=== PATIENT | female | born 1930 | race Caucasian/White ===

== ENCOUNTER → 2016-06-08 | Outpatient (REF) | payer MEDICARE ==
[~2016-06-08] MED LIST: /AMLO25TA PO; AMLO5TAB2 PO; ARTI99.0 OU; ASPI81TA60 PO; AUGM12TA3 PO; BACITAB PO; CARA1SUS PO; CHOL4PKT PO; CLOP75TA2 PO; CRES40TA PO; FURO40TA2 PO; LIPI20TA PO; METF-414 PO; MICR8CAP PO; MULTTAB4 PO; NADO20TA2 PO; NEUR300C PO; OMEP20CA3 PO; SILV1CRE19 TOP; TOPR25TA PO; TYLE325T5 PO; VANC12CA PO; VICOBULK PO; VITA-112 PO; ZEST10TA4 PO; [UNRECOGNIZED DRUG - CODE] AD
[2016-06-08 19:25] LABS: PERCENT SATURATION 10.6 % (13.2-37.4)
== END ==
LOC: M LAB REF 16:18
DX: G62.9 Polyneuropathy, unspecified (principal); D64.9 Anemia, unspecified

== ENCOUNTER → 2016-11-25 | Outpatient (CLI) | payer MEDICARE ==
[~2016-11-25] MED LIST changes: +AMLO25TA PO; +ASPI1TAB PO; +ATOR40TA75 PO; +IRON65TA PO; +LASI20TA PO; +LEVA1TAB PO; +METO25TA4 PO; +VITMTA PO
[2016-11-25 12:48] LABS: ALBUMIN 3.5 GM/DL (3.2-5.2); ALBUMIN/GLOBULIN RATIO 1.13 (1.00-1.93); ALKALINE PHOSPHATASE 99 U/L (45-117); ALT/SGPT 23 U/L (12-78); ANION GAP 6 MEQ/L (8-16); AST/SGOT 29 U/L (15-37); BILIRUBIN,TOTAL 0.9 MG/DL (0.2-1.0); BLOOD UREA NITROGEN 20 MG/DL (7-18); CALCIUM LEVEL 9.2 MG/DL (8.8-10.2); CARBON DIOXIDE LEVEL 32 MEQ/L (21-32); CHLORIDE LEVEL 104 MEQ/L (98-107); CHOLESTEROL LEVEL 143 MG/DL (<200); CREATININE FOR GFR 0.81 MG/DL (0.55-1.02); GLOMERULAR FILTRATION RATE > 60.0 (>32); GLUCOSE, FASTING 79 MG/DL (83-110); POTASSIUM SERUM 4.6 MEQ/L (3.5-5.1); SODIUM LEVEL 142 MEQ/L (136-145); TOTAL PROTEIN 6.6 GM/DL (6.4-8.2); TRIGLYCERIDES LEVEL 72 MG/DL (<150)
[2016-11-25 13:07] LABS: BASO % 0.7 % (0.0-1.0); EOS # 0.2 K/mm3 (0.0-0.50); EOS % 3.7 % (0.0-3.0); LARGE UNSTAINED CELL # 0.1 K/mm3 (0.0-0.4); LARGE UNSTAINED CELL % 2.5 % (0.0-4.0); LYMPH # 1.2 K/mm3 (1.5-4.5); MEAN CORPUSCULAR HEMOGLOBIN 31.8 pg (27.0-33.0); MEAN CORPUSCULAR HGB CONC 33.2 g/dl (32.0-36.5); MEAN CORPUSCULAR VOLUME 95.9 fl (80.0-96.0); MONO # 0.4 K/mm3 (0.0-0.8); MONO % 7.5 % (0.0-5.0); NEUTROPHILS # 3.7 K/mm3 (1.8-7.7); NEUTROPHILS % 64.6 % (36.0-66.0); PLATELET COUNT, AUTOMATED 254 k/mm3 (150-450); RED CELL DISTRIBUTION WIDTH 13.2 % (11.5-14.5); WHITE BLOOD COUNT 5.7 K/mm3 (4.0-10.0)
== END ==
LOC: M LRY 09:39
PROVIDERS: ATTEND Internal Medicine
DX: I73.9 Peripheral vascular disease, unspecified (principal)

== ENCOUNTER → 2017-02-16 | Outpatient (CLI) | payer MEDICARE ==
[2017-02-16 12:36] LABS: BLOOD UREA NITROGEN 24 MG/DL (7-18); CREATININE FOR GFR 0.74 MG/DL (0.55-1.02); GLOMERULAR FILTRATION RATE > 60.0 (>32)
== END ==
LOC: M LRY 09:18
PROVIDERS: ATTEND Surgery
DX: Z85.048 Personal history of other malignant neoplasm of rectum, rectosigmoid junction, and anus (principal); E11.9 Type 2 diabetes mellitus without complications

== ENCOUNTER → 2017-02-24 | Outpatient (CLI) | payer MEDICARE ==
[~2017-02-24] MED LIST changes: +GASTROGRAFIN SOLUTION 30ML (Q9963) As Ordered ONE; +ISOVUE-370 76% 100ML VIAL (Q9967) As Ordered ONE
--- NOTE | 2017-02-24 14:29 | REP ---
CT of the abdomen and pelvis with bowel can contrast and without and with IV contrast, multiphase imaging. Comparison is 02/10/2016. Within the visualized lower lung barker. There is chronic parenchymal scarring as previously. No nodules or masses are identified. The hepatic parenchyma is homogeneous on all phases of the study. The gallbladder, pancreas and spleen are normal size and unremarkable. There is a new 5.6 cm cyst at the lower pole of the right kidney. This measured 5 x 4 cm previously. The kidneys are otherwise unremarkable and unchanged. There is no bowel distension. Mesentery is unremarkable. Pelvis: There is a left lower quadrant colostomy as previously. There is a rectal stump as previously. On the prior study there was a parastomal hernia comprising small bowel loops. This is no longer present today. There is no bowel distension or obstruction. No ascites. There is no periaortic or mesenteric adenopathy. There is no pelvic adenopathy. There is no ascites. The bladder is unremarkable. There are no lytic, blastic or destructive skeletal changes. There is advanced degenerative disc disease throughout the lumbar spine and there is grade II compression deformity of the T12 vertebral body. These findings are unchanged. Impression: No change from the prior study. No evidence of metastatic disease, adenopathy or disc ascites. There is a left lower quadrant colostomy. A rectal stump. No bowel distension or obstruction. There is a large right renal lower pole cysts as described. Advanced multilevel degenerative disc disease in the lumbar spine and chronic grade II compression deformity of the T12 vertebral body, unchanged. Signed by Db Forte MD 02/24/2017 02:20 P
== END ==
LOC: M RAD 11:16
PROVIDERS: ATTEND Surgery
DX: J98.4 Other disorders of lung (principal); N28.1 Cyst of kidney, acquired; M51.86 Other intervertebral disc disorders, lumbar region; Z85.048 Personal history of other malignant neoplasm of rectum, rectosigmoid junction, and anus; Z93.3 Colostomy status
CPT/HCPCS: 74178; Q9963; Q9967

== ENCOUNTER 2017-03-28 15:02 | Observation (INO) | payer MEDICARE ==
[~2017-03-28] VITALS: Ht 154.9 cm; Wt 54.7 kg
[~2017-03-28 15:02] MED LIST changes: -AMLO25TA PO; -ASPI1TAB PO; -ATOR40TA75 PO; -GASTROGRAFIN SOLUTION 30ML (Q9963) As Ordered ONE; -IRON65TA PO; -ISOVUE-370 76% 100ML VIAL (Q9967) As Ordered ONE; -LASI20TA PO; -LEVA1TAB PO; -METO25TA4 PO; -VITMTA PO
[2017-03-28] MEDS ORDERED: IRON65TA PO (15:20)
[2017-03-28] MEDS ORDERED: ASPI1TAB PO (15:20)
[2017-03-28 16:50] LABS: BASO % 0.5 % (0.0-1.0); EOS # 0.3 10^3/uL (0.0-0.50); EOS % 3.9 % (0.0-3.0); IMMATURE GRANULOCYTE % 0.2 % (0-0); LYMPH # 1.3 10^3/uL (1.5-4.5); LYMPH % 19.8 % (24.0-44.0); MEAN CORPUSCULAR HEMOGLOBIN 31.3 pg (27.0-33.0); MEAN CORPUSCULAR HGB CONC 32.8 g/dl (32.0-36.5); MEAN CORPUSCULAR VOLUME 95.5 fl (80.0-96.0); MONO # 0.8 10^3/uL (0.0-0.8); MONO % 12.7 % (0.0-5.0); NEUTROPHILS # 4.1 10^3/uL (1.8-7.7); NEUTROPHILS % 62.9 % (36.0-66.0); PLATELET COUNT, AUTOMATED 239 10^3/uL (150-450); RED CELL DISTRIBUTION WIDTH 13.8 % (11.5-14.5); WHITE BLOOD COUNT 6.5 10^3/uL (4.0-10.0)
[2017-03-28 17:11] LABS: ALBUMIN 3.3 GM/DL (3.2-5.2); ALKALINE PHOSPHATASE 96 U/L (45-117); ALT/SGPT 24 U/L (12-78); ANION GAP 7 MEQ/L (8-16); AST/SGOT 26 U/L (7-37); BILIRUBIN,DIRECT 0.2 MG/DL (0.0-0.2); BILIRUBIN,TOTAL 0.6 MG/DL (0.2-1.0); BLOOD UREA NITROGEN 25 MG/DL (7-18); CALCIUM LEVEL 8.9 MG/DL (8.8-10.2); CARBON DIOXIDE LEVEL 33 MEQ/L (21-32); CHLORIDE LEVEL 103 MEQ/L (98-107); CREATININE FOR GFR 0.75 MG/DL (0.55-1.02); FREE T4 1.13 NG/DL (0.76-1.46); GLOMERULAR FILTRATION RATE > 60.0 (>32); GLUCOSE, FASTING 102 MG/DL (83-110); SODIUM LEVEL 143 MEQ/L (136-145); TOTAL PROTEIN 6.6 GM/DL (6.4-8.2)
[2017-03-28] MEDS ORDERED: VITMTA PO (17:52)
[2017-03-28] MEDS ORDERED: METO25TA4 PO (17:52)
[2017-03-28] MEDS ORDERED: ATOR40TA75 PO (17:52)
[2017-03-28] MEDS ORDERED: POLYVINYL ALCOHOL OPHTH SOLN 15 ML(LIQUITEARS) OU PRN (18:15)
[2017-03-28] MEDS: amLODIPine 5 MG TAB PO SCH (18:17)
[2017-03-28] MEDS ORDERED: DEXTROSE 50% 50 ML SYRINGE IV PRN (18:30)
[2017-03-28] MEDS ORDERED: GLUCAGON FOR INJ 1 MG VIAL (J1610) SC PRN (18:30)
[2017-03-28] MEDS ORDERED: GLUCOSE 4 GM CHEW TABLET PO PRN (18:30)
[2017-03-28] MEDS: **hydrALAZINE** 10 MG TAB PO SCH (20:00)
[2017-03-28 20:25] VITALS: BP 152/60
[2017-03-28] MEDS: HumaLOG INSULIN (NovoLOG) PER UNIT SC SCH (21:00)
[2017-03-28] MEDS: ATORVASTATIN 20 MG TAB PO SCH (22:02)
[2017-03-28] MEDS: GABAPENTIN 300 MG CAP PO SCH (22:03)
[2017-03-28] MEDS: HEPARIN SOD (PORCINE) 5000 UNITS/ML VIAL SC SCH (22:03)
[2017-03-28] MEDS: ACETAMINOPHEN TAB 650MG DOSE (2X325MG) PO PRN (22:08)
[2017-03-29] VITALS (8 sets, daily range): BP systolic 119–190; BP diastolic 59–80
[2017-03-29] MEDS: **hydrALAZINE** 10 MG TAB PO SCH ×3 (03:31→20:00)
--- NOTE | 2017-03-29 04:49 | HPE ---
DATE OF ADMISSION: 03/28/2017 PRIMARY CARE PROVIDER: Dr. Joel. OUTPATIENT SALES TRAINING COORDINATOR: Dr. Alcaraz. HISTORY OF PRESENT ILLNESS: This patient is an 86-year-old female with a past medical history significant for peripheral vascular disease, rectal cancer status post colectomy, degenerative disc disease, diabetes, bilateral carotid endarterectomy, osteoporosis, gastroesophageal reflux disease (GERD), Raynaud's, myocardial infarction (MA) status post four cardiac stents, presented to [facility] on 03/28/2017 for increased fatigue. Patient stated intermittently she would feel dizziness and lightheadedness and the most recent episode occurred 2 weeks ago and lasted for a few hours. In the last 24 hours, patient started to have complaint about significant fatigue and "shakiness of the body," and the niece brought the blood pressure cuff to the patient today and patient was found to have a heart rate of 39. Then the niece started to walk the patient. The heart rate improved to greater than 50s. However, the symptoms continued to persist, therefore, they came to [facility] for further evaluation and treatment. In the emergency room, EKG was performed. There are multiple incidences that patient's heart rate would drop below 50s. [employer] sales service professional was reached and recommended to monitor on telemetry and beta norma should be discontinued at the moment. The hospitalist team was called for admission. PAST MEDICAL HISTORY: 1. Peripheral vascular disease with revascularization of the left lower extremity. 2. Degenerative disc disease. 3. Rectal cancer status post colectomy 3 years ago. 4. Diabetes with neuropathy and vasculopathy. 5. Bilateral carotid blockage status post endarterectomies. 6. Osteoporosis. 7. Gastroesophageal reflux disease. 8. Raynaud's. 9. Postoperative MA with ventricular fibrillation (VFib) and cardiac arrest status post bare metal stent. PAST SURGICAL HISTORY: 1. Left lower extremity revascularization with femoral popliteal bypass graft. 2. Colectomy 3 years ago. 3. Bilateral carotid endarterectomies. 4. Hysterectomy. 5. Appendectomy. 6. Rectal fistula surgery. 7. Cardiac stent times four. SOCIAL HISTORY: Quit smoking 40 years ago, used to smoke one pack per week for 15 years. Drinks tiarra approximately twice a year. Denied any recreational drug use. REVIEW OF SYSTEMS: GENERAL: Denies any fever or chills. Complained about increased fatigue. HEENT: Denies any vision changes. No auditory changes. CARDIOVASCULAR: History of MA and cardiac arrest in the past. Patient has been having persistent bradycardia. Denied any chest pain. RESPIRATORY: No shortness of breath. No cough. No sputum production. GASTROINTESTINAL: Patient had a history of rectal cancer. Now has an ostomy. No abdominal pain. No nausea. No vomiting. MUSCULOSKELETAL: No muscle pain. No joint pain. NEUROLOGICAL: Patient has diabetic neuropathy and vasculopathy. Has decreased sensation in the extremities, especially the fingertips. OBJECTIVE: VITAL SIGNS: Temperature 98, pulse 50, blood pressure 158/60 with a manual cuff. Pulse oximetry is 95% in room air. GENERAL: Fatigued, pale, no sign of acute distress. Alert and oriented times three. HEENT: Normocephalic, atraumatic. Extraocular motor grossly intact. Wearing corrective lenses. RESPIRATORY: Clear to auscultation bilaterally. No wheezes, rhonchi. CARDIOVASCULAR: Bradycardic, positive S1, S2. ABDOMEN: Soft, nontender, nondistended, bowel sounds present, bag located left mid lower abdomen. EXTREMITIES: Positive pitting edema bilaterally. Dry lower extremity skin. Mild coldness to the bilateral fingers. NEUROLOGICAL: Decreased sensation peripherally. The sensation to fine touch grossly intact. Muscle strength 5/5. LABORATORY DATA: WBC 6.5, hemoglobin 13.1, hematocrit 39.9, platelet count is 239. Sodium is 143, potassium 4, chloride 103, carbon dioxide 33, BUN 25, creatinine 0.75, GFR greater than 60, fasting glucose 102, calcium 8.9, total bilirubin 0.6, direct bilirubin 0.2, AST 26, ALT 24, alkaline phosphatase 96, troponin I is 0.03, total protein 6.6. EKG showed sinus bradycardia. ASSESSMENT AND PLAN: 1. Symptomatic bradycardia. Patient was taking metoprolol tartrate 25 mg by mouth twice a day. Due to the symptomatic bradycardia, metoprolol will be on hold. Patient will be monitored on the telemetry. 2. Hypertensive urgency. There are [facility] stating patient has a significantly elevated blood pressure. Most of the blood pressures were taken with automatic cuff. There is also reading when patient's blood pressure is measured manually, the blood pressure still remains elevated, but systolic blood pressure is not greater than 200. Therefore, all the patient's blood pressure measurements should be measured with a manual cuff. Due to the symptomatic bradycardia, metoprolol will be discontinued. There is a questionable adverse effect in lisinopril; patient complained about dizziness when taking lisinopril, but she is not 100% sure. Patient's blood pressure medication was switched to amlodipine. Patient will also have hydralazine as needed for persistent hypertensive urgency. We will also continue patient's diuretic. 3. Diabetes. On consistent carbohydrate diet, on sliding scale. Will follow A1c tomorrow morning. Patient does have neuropathy and vasculopathy from the diabetes. At home, patient is not insulin dependent. 4. History of rectal cancer status post colectomy. Patient has an ostomy in place. 5. History of postoperative myocardial infarction (MA) with ventricular fibrillation (VFib) and cardiac arrest. It occurred approximately 3 years ago when patient was receiving colectomy for her rectal cancer. Patient also has four cardiac stents. Continue aspirin and atorvastatin. 6. History of Raynaud's. 7. Gastroesophageal reflux disease. Patient will be on Protonix. 8. Diuretic use. Patient was not sure whether she has a history of congestive heart failure. She did have a history of cardiac arrest and myocardial infarction 3 years ago. Patient also has frequent lower extremity swelling. Will follow with cardiac echogram. No echocardiogram report available in our computer system. 9. History of peripheral vascular disease with revascularization of the left lower extremity. On aspirin. 10. Deep venous thrombosis (DVT) prophylaxis. On heparin.
[2017-03-29 05:20] LABS: MEAN CORPUSCULAR HEMOGLOBIN 30.9 pg (27.0-33.0); MEAN CORPUSCULAR HGB CONC 32.8 g/dl (32.0-36.5); MEAN CORPUSCULAR VOLUME 94.2 fl (80.0-96.0); PLATELET COUNT, AUTOMATED 218 10^3/uL (150-450); RED CELL DISTRIBUTION WIDTH 13.8 % (11.5-14.5); WHITE BLOOD COUNT 4.9 10^3/uL (4.0-10.0)
[2017-03-29 05:36] LABS: ANION GAP 8 MEQ/L (8-16); BLOOD UREA NITROGEN 21 MG/DL (7-18); CALCIUM LEVEL 8.6 MG/DL (8.8-10.2); CARBON DIOXIDE LEVEL 26 MEQ/L (21-32); CHLORIDE LEVEL 106 MEQ/L (98-107); CREATININE FOR GFR 0.64 MG/DL (0.55-1.02); GLOMERULAR FILTRATION RATE > 60.0 (>32); GLUCOSE, FASTING 89 MG/DL (83-110); POTASSIUM SERUM 3.9 MEQ/L (3.5-5.1); SODIUM LEVEL 140 MEQ/L (136-145)
[2017-03-29] MEDS: ACETAMINOPHEN TAB 650MG DOSE (2X325MG) PO PRN (06:00)
[2017-03-29] MEDS: HEPARIN SOD (PORCINE) 5000 UNITS/ML VIAL SC SCH ×3 (06:00→21:55)
--- NOTE | 2017-03-29 07:26 | REP ---
PORTABLE CHEST X-RAY: Sitting AP view. HISTORY: Chest pain COMPARISON STUDY: March 04, 2016. FINDINGS: EKG monitoring electrodes overlie the chest. Cardiomegaly is observed unchanged. No focal infiltrate is seen. No pleural effusion or pulmonary edema is seen. There are surgical clips in the soft tissues of the neck bilaterally. Advanced degenerative changes are seen in the shoulders. IMPRESSION: Cardiomegaly. otherwise no acute disease. Signed by Gianni Lancaster MD 03/29/2017 09:19 A
[2017-03-29] MEDS: HumaLOG INSULIN (NovoLOG) PER UNIT SC SCH ×4 (07:52→21:00)
[2017-03-29] MEDS ORDERED: LISINOPRIL 5 MG TAB PO SCH (09:00)
--- NOTE | 2017-03-29 09:09 | CR ---
DATE OF CONSULTATION: 03/29/2017 INDICATION: Symptomatic bradycardia. HISTORY OF PRESENT ILLNESS: Mrs. Morse is previously unknown to me. She recently established care with my partner Dr. Alcaraz. She is a pleasant 86-year-old female who has a history of coronary artery disease, in February 2014 she had cardiac arrest during colectomy. She was successfully resuscitated and received single bare metal stent to right coronary artery for single vessel coronary artery disease (CAD). She presented to our hospital because of feeling tired and occasionally lightheaded. There was no history of near syncope. Her relative checked her pulse and apparently she was bradycardic in 30s and consequently she was brought to hospital for further evaluation. During monitoring in the emergency room her heart rate varied but typically was in low 40s. There were no episodes of AV block or truly critical bradycardia. Her blood pressure is actually relatively hypertensive. There were no documented episodes of hypotension. She was admitted for observation overnight. The only AV aman blocking agent that she is on is metoprolol. According to admission notes, she was taking 25 mg twice a day, but a reading in Dr. Alcaraz's note from March 03, 2017, he actually reduced the dose to just 12.5 mg twice a day because of bradycardia. The medication was discontinued since admission. The last dose was administered yesterday morning. PAST MEDICAL HISTORY: 1. Coronary artery disease, as above. Her last echocardiogram was in July 2015 and revealed estimated ejection fraction 55-60% and mild aortic stenosis. Cardiac catheterization in February 2014 when she had cardiac arrest revealed single-vessel CAD and she received bare metal stent to right coronary artery. 2. She has history of peripheral vascular disease with intervention to left lower extremity, followed by Dr. Hernandez. 3. Carotid artery disease status post bilateral carotid endarterectomies, again followed by Dr. Hernandez. 4. Gastroesophageal reflux disease (GERD). 5. Type 2 diabetes. 6. Dyslipidemia. 7. Aortic valve stenosis, as above. 8. History of colon cancer, status post colostomy and hemicolectomy. PAST SURGICAL HISTORY: 1. Bilateral carotid endarterectomies. 2. Hysterectomy. 3. Appendectomy. 4. Left leg revascularization. OUTPATIENT MEDICATIONS: - Lisinopril 5 mg a day - aspirin 81 mg a day - Lipitor 40 mg a day - furosemide 20 mg every other day - gabapentin 300 mg four times a day - metformin 500 a day - metoprolol, not completely clear whether 12.5 or 25 mg twice a day - multivitamin - omeprazole 20 mg a day - vitamin D 1000 units a day She reports allergy or intolerance to PENICILLIN, ERYTHROMYCIN, FLAGYL. SOCIAL HISTORY: The patient is single. She has no children. She has two brothers that are quite attentive. 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 There is no alcohol use. She quit smoking approximately 40 years ago. FAMILY HISTORY: Positive for coronary artery disease. REVIEW OF SYSTEMS: She denies any recent fever, chills, nausea, vomiting. No chest pain. No shortness of breath. No abdominal pain. No bleeding issues. She denies any claudications. She tells me that she feels tired and spends a lot of time in bed but when she gets out of bed and is ambulatory she actually feels better. PHYSICAL EXAMINATION: Mrs. Russo is a very pleasant 86-year-old female, alert, oriented, and appropriate. She appears actually somewhat younger than her age. There are scars after bilateral carotid endarterectomies. I do not appreciate carotid bruit on either side. Lungs are clear to auscultation with good air movement. Heart exam reveals regular rhythm and there is a systolic ejection murmur over the aortic valve, approximately 2/6 intensity. Second heart sound is well preserved. I do not appreciate any rub or gallop. Abdomen is soft, nontender. There is colostomy that appears intact. Extremities are free of edema and peripheral pulses are palpable on both extremities. Neurologically, she is intact. She certainly is alert and appropriate and moves all four extremities. I did not formally test her strength or gait. No skin lesions. LABORATORY DATA: Her CBC is normal. Basic metabolic panel is also normal but for glucose 137, hemoglobin A1c 6.4. She has normal liver function tests and normal two sets of cardiac enzymes. TSH is 1.3. Urinalysis was negative for protein. IMAGING STUDIES: Her chest x-ray did not reveal any evidence for congestive heart failure. There was borderline cardiomegaly. ECG reveals presence of sinus bradycardia, borderline first-degree AV block and questionable old inferior wall myocardial infarction. ASSESSMENT AND PLAN: Ms. Morse is an 86-year-old female who presented with weakness and dizziness and was bradycardic. It is a sinus bradycardia with heart rate around 40 at its cinthia. During the telemetry monitoring so far, she did not have any pauses. There was no episode of AV block and certainly I do not appreciate any indication for pacemaker placement as yet. I would advocate to discontinue beta blockers completely and watch the patient on telemetry at least one more day. I would let her ambulate to make sure that she does not get lightheaded or dizzy with ambulation and tolerates it well. Otherwise, as far as the blood pressure management is concerned, she was started on hydralazine, which is not a bad short-term solution but in the long run my recommendation would be to utilize KYLE inhibitors and amlodipine combination as the better antihypertensive choices. Diuretics can be used on an as-needed basis. I will continue following the patient with you.
[2017-03-29] MEDS: VITAMIN D 1,000 INTERNATIONAL UNITS TABLET PO SCH (09:30)
[2017-03-29] MEDS: FUROSEMIDE 20 MG TAB PO SCH (09:30)
[2017-03-29] MEDS: FERROUS SULFATE 325MG TAB PO SCH (09:30)
[2017-03-29] MEDS: GABAPENTIN 300 MG CAP PO SCH ×4 (09:30→21:53)
[2017-03-29] MEDS: PANTOPRAZOLE 40MG TAB (PROTONIX) PO SCH (09:30)
[2017-03-29] MEDS: MULTIVITAMINS/MINERALS THERAP 1 TAB PO SCH (09:30)
[2017-03-29] MEDS: ASPIRIN 81 MG ENTERIC TAB PO SCH (09:30)
[2017-03-29] MEDS: amLODIPine 5 MG TAB PO SCH (09:31)
--- NOTE | 2017-03-29 12:04 | IPNPDOC ---
Text Note Date of Service The patient was seen on 03/29/17. NOTE Subjective: 86 yo f with PMH of CAD s/p CO and stent, PVD, PAD, GERD, DM 2, dyslipidemia, Aortic valve stenosis, history of colon ca s/p colostomy presented with dizziness and bradycardia. Patient was seen and examined at bedside. She is feeling better today. Denies any dizziness. She stated she usually feel better when she moves around. Denies any chest pain, sob, abdominal pain, n/v/d/c, problems with urination. Admits to chronic swelling of LLE due to cellulites. Objective: Vitals (See below) General: Lying in bed, no acute distress, comfortable, AAOx3 HEENT: NC, AT, EMOI CVS: RRR, 4/6 systolic murmur at 2nd ICS with radiation to carotid Lungs: Fair air entry b/l, -w/r/r Abdomen: Soft, ND, NT, no peritoneal signs Extremities: trace + pitting edema, LLE erythema, swelling with chronic skin changes Assessment and plan: Symptomatic bradycardia -Holding metoprolol -There is a concern if patient was taking two beta norma together at home -Cardiology Dr. 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 As needed, all aspects of the patient interview, examination, medical decision making process, and medical care plan development were reviewed and approved by the preceptor. Preceptor is aware and concurs with the plan as stated in the body of this note and will attest to such by his/her cosignature. ATTENDING NOTE I, Alexus Lovell, have both independently examined this patient as well as reviewed the documentation. I have discussed in detail with the resident the findings and plan of treatment as documented in the residents documentation. I will continue to follow the patient and offer further guidance to the patients care as necessary during this hospital stay. VS,Fishbone, I+O VS, Fishbone, I+O Laboratory Tests 03/28/17 16:40 Red Blood Count 4.18, Mean Corpuscular Volume 95.5, Mean Corpuscular Hemoglobin 31.3, Mean Corpuscular Hemoglobin Concent 32.8, Red Cell Distribution Width 13.8 , Neutrophils (%) (Auto) 62.9, Lymphocytes (%) (Auto) 19.8 L, Monocytes (%) ( Auto) 12.7 H, Eosinophils (%) (Auto) 3.9 H, Basophils (%) (Auto) 0.5, Neutrophils # (Auto) 4.1, Lymphocytes # (Auto) 1.3 L, Monocytes # (Auto) 0.8, Eosinophils # (Auto) 0.3, Basophils # (Auto) 0.0 03/29/17 04:36 Red Blood Count 4.14, Mean Corpuscular Volume 94.2, Mean Corpuscular Hemoglobin 30.9, Mean Corpuscular Hemoglobin Concent 32.8, Red Cell Distribution Width 13.8 , Calcium Level 8.6 L Vital Signs Date Time Temp Pulse Resp B/P (MAP) Pulse Ox O2 Delivery O2 Flow Rate FiO2 03/29/17 09:31 55 154/66 03/29/17 08:00 Room Air 03/29/17 07:20 97.2 20 97 I&O- Last 24 Hours up to 6 AM 03/30/17 06:00 Output Total 100 ml Balance -100 ml DENISE CAMPA DO Mar 29, 2017 12:04 ALEXUS LOVELL MD Mar 29, 2017 12:12
[2017-03-29] MEDS: LISINOPRIL *2.5 MG* TAB PO SCH ×2 (12:27→21:53)
--- NOTE | 2017-03-29 15:34 | REP ---
Left lower extremity Duplex Doppler venous ultrasound: Real time compression and duplex Doppler interrogation of the left lower extremity deep venous system is performed. The left common femoral, superficial femoral and popliteal veins are fully compressible with transducer pressure and demonstrate normal spontaneous and phasic flow, without evidence of deep venous thrombosis. Impression: No evidence of deep venous thrombosis of the left lower extremity femoral popliteal venous system. Signed by Db Cummins MD 03/29/2017 03:25 P
--- NOTE | 2017-03-29 17:15 | ECHO ---
DATE OF PROCEDURE: 03/29/2017 REFERRING PHYSICIAN: Dr. Joe INDICATION: Edema. The patient measures 155 cm and weighs 59 kg. DIMENSIONS: IVS: 1.8 LV: 3.3 LVPW: 1.5 LA: 2.8 Aorta: 3.4 FINDINGS The study is a very good technical quality. Left ventricle is of normal size and hyperdynamic contractility, estimated left ventricular ejection fraction (LVEF) 70-75%. Moderately severe left ventricular hypertrophy that is global is noted. Right ventricle does not appear enlarged. Both atria appear normal. Aortic valve has three cusps. It is sclerotic but mobility is mostly preserved. Mitral and tricuspid and pulmonic valves appear normal. Trivial pericardial effusion is noted. Inferior vena cava is normal size. Aortic root, aortic arch and abdominal aorta were not well seen. Doppler interrogation reveals no significant aortic valve disease, there is only trace insufficiency and mild stenosis (mean gradient 11 mmHg.) There is mild mitral insufficiency and trace tricuspid insufficiency. Unfortunately, quality of TR jet was not sufficient to adequately estimate pulmonary artery pressure. Pulmonic valve exhibits trace insufficiency. CONCLUSIONS: 1. Study is of good technical quality. 2. Normal left ventricular (LV) size with moderate left ventricular hypertrophy and hyperdynamic LV systolic function. Grade 1 diastolic dysfunction. 3. Aortic sclerosis resulting in trivial stenosis and trace insufficiency. 4. Mild mitral and trace tricuspid insufficiency. 5. Normal central venous pressure. 6. Unable to estimate pulmonary artery pressure. COMMENTS: Subacute bacterial endocarditis (SBE) prophylaxis is not recommended.
--- NOTE | 2017-03-29 17:48 | ECGEPIP ---
Stationary ECG Study [facility] - ED Test Date: 2017-03-28 Pat Name: DAVID LOUISE Department: Room: [place] [address] Gender: F Multigraph Operator: hai : [id number] Requested By: Sridhar Conn Order Number: [id number] Reading MD: Mango Fernando Measurements Intervals [place] Rate: 57 P: 37 CT: 196 QRS: 4 QRSD: 81 T: 36 QT: 432 QTc: 421 Interpretive Statements SINUS BRADYCARDIA POSSIBLE PRIOR INFERIOR INFARCT SIMILAR TO 03/04/16 Electronically Signed On 03-29-2017 17:48:03 EDT by Mango Fernando
[2017-03-29] MEDS: ATORVASTATIN 20 MG TAB PO SCH (21:54)
[2017-03-30] VITALS (12 sets, daily range): BP systolic 90–168; BP diastolic 58–82
[2017-03-30] MEDS: ACETAMINOPHEN TAB 650MG DOSE (2X325MG) PO PRN (02:09)
[2017-03-30 04:36] LABS: MEAN CORPUSCULAR HEMOGLOBIN 31.6 pg (27.0-33.0); MEAN CORPUSCULAR HGB CONC 33.2 g/dl (32.0-36.5); MEAN CORPUSCULAR VOLUME 95.3 fl (80.0-96.0); PLATELET COUNT, AUTOMATED 238 10^3/uL (150-450); RED CELL DISTRIBUTION WIDTH 13.9 % (11.5-14.5); WHITE BLOOD COUNT 6.2 10^3/uL (4.0-10.0)
[2017-03-30 04:48] LABS: ANION GAP 6 MEQ/L (8-16); BLOOD UREA NITROGEN 19 MG/DL (7-18); CALCIUM LEVEL 8.6 MG/DL (8.8-10.2); CARBON DIOXIDE LEVEL 28 MEQ/L (21-32); CHLORIDE LEVEL 104 MEQ/L (98-107); CREATININE FOR GFR 0.81 MG/DL (0.55-1.02); GLOMERULAR FILTRATION RATE > 60.0 (>32); GLUCOSE, FASTING 99 MG/DL (83-110); MAGNESIUM LEVEL 1.9 MG/DL (1.8-2.4); POTASSIUM SERUM 4.2 MEQ/L (3.5-5.1); SODIUM LEVEL 138 MEQ/L (136-145)
[2017-03-30] MEDS: **hydrALAZINE** 10 MG TAB PO SCH (05:10)
[2017-03-30] MEDS: HEPARIN SOD (PORCINE) 5000 UNITS/ML VIAL SC SCH ×3 (05:11→20:54)
[2017-03-30] MEDS: HumaLOG INSULIN (NovoLOG) PER UNIT SC SCH ×4 (07:35→20:58)
--- NOTE | 2017-03-30 08:53 | IPN ---
DATE: 03/30/2017 Mrs. Morse is feeling better. She feels that she has more energy and feels overall improved compared to admission date. Her heart rate remains quite bradycardic and most of the time is in 50s during awake hours and she gets down to about 40 beats per minute when she sleeps, but continued to telemetry monitoring did not reveal any AV aman conduction disease and there were no episodes of extreme bradycardia. She has no specific complaints today. Blood pressure 168/70. She is afebrile. Saturation 98% on room air. Her weight was documented as 66.6 kg. She is alert and oriented and appropriate, actually eating breakfast when I saw her this morning. Her JVP is not up. Lungs are clear to auscultation. Heart exam reveals regular rhythm. I do not appreciate any gallop or rub. There is fairly faint murmur over the aortic valve. Abdomen is soft and nontender. There is no significant edema. Neurologically she is intact for her age. LABORATORIES: She has normal basic metabolic panel and normal CBC. I interpreted her echocardiogram that was performed yesterday and it revealed hyperdynamic LV systolic function with moderate left ventricular hypertrophy and fairly trivial aortic stenosis. ASSESSMENT/PLAN Mrs. Morse is an 78-year-old female who has a history of a prior myocardial infarction was approximately 3 years ago, with single lesion in the right coronary artery treated with PCI, who presented with weakness and a episodes of sinus bradycardia in the high 30s. At this point, would discontinue her beta blockers which was done. I think that she can be discharged home. I have not witnessed any bradycardia that will warrant a pacemaker placement. A separate problem is hypertension. I would recommend to discharge home on combination of amlodipine and lisinopril. I do not believe that hydralazine should be part of her regimen. First of all, in combination with amlodipine it gets very minimal additional benefit and it is a three times a day medication, which is difficult to take, especially for elderly people. I will set up a followup with Dr. Alcaraz within next couple weeks. I instructed the patient to keep monitoring blood pressure at home and bring a log to her next office visit.
[2017-03-30] MEDS ORDERED: amLODIPine 5 MG TAB PO ONE ×2 (09:00)
[2017-03-30] MEDS ORDERED: LISINOPRIL *2.5 MG* TAB PO SCH (09:00)
[2017-03-30] MEDS ORDERED: FUROSEMIDE 40 MG TAB PO SCH (09:00)
[2017-03-30] MEDS: VITAMIN D 1,000 INTERNATIONAL UNITS TABLET PO SCH (10:42)
[2017-03-30] MEDS: FERROUS SULFATE 325MG TAB PO SCH (10:43)
[2017-03-30] MEDS: PANTOPRAZOLE 40MG TAB (PROTONIX) PO SCH (10:43)
[2017-03-30] MEDS: GABAPENTIN 300 MG CAP PO SCH ×4 (10:43→20:53)
[2017-03-30] MEDS: MULTIVITAMINS/MINERALS THERAP 1 TAB PO SCH (10:44)
[2017-03-30] MEDS: ASPIRIN 81 MG ENTERIC TAB PO SCH (10:44)
[2017-03-30] MEDS: amLODIPine 5 MG TAB PO SCH (10:48)
[2017-03-30] MEDS: FUROSEMIDE 20 MG TAB PO SCH (10:49)
[2017-03-30] MEDS ORDERED: SODIUM CHLORIDE 0.9% 1000 ML IV ONE (11:00)
--- NOTE | 2017-03-30 11:28 | IPNPDOC ---
Text Note Date of Service The patient was seen on 03/30/17. NOTE Subjective: 86 yo f with PMH of CAD s/p DC and stent, PVD, PAD, GERD, DM 2, dyslipidemia, Aortic valve stenosis, history of colon ca s/p colostomy presented with dizziness and bradycardia. Patient was seen and examined at bedside. She is feeling better today. HR was in 70s sitting up. Denies any dizziness. Denies any chest pain, sob, abdominal pain, n/v/d/c, problems with urination. Telemetry shows 5 beats of VT. Denies any other current new complaints. Objective: Vitals (See below) General: Lying in bed, no acute distress, comfortable, AAOx3 HEENT: NC, AT, EMOI CVS: RRR, 4/6 systolic murmur at 2nd ICS with radiation to carotid Lungs: Fair air entry b/l, -w/r/r Abdomen: Soft, ND, NT, no peritoneal signs Extremities: trace + pitting and none pitting edema, LLE erythematous, swelling with chronic skin changes, distal pulses intact Assessment and plan: Symptomatic bradycardia -Holding metoprolol - Improved. -Cardiology Dr. Rico has been consulted, recommended patient can go home from cardiac stand of point -BP stable Relative Hypotension - Patient's SBP dropped in 90s around noon time before she received her morning BP medications - Will check EKG, cardiac markers - Start patient on small bolus of 250 ml - Continue to monitor - WIll titrate BP Meds. - Not due to infection Non sustained VT - 5 beasts VT last night - continue to monitor Hypertensive urgency - c/w Amlodipine, added 5 mg once to see if she is responding - Started on Lisinopril - Will DC hydralazine if BP is better controlled - Holding metoprolol Aortic valve stenosis -echo on 03/29/17 showed, grade 1 diastolic dysfunction , trivial aortic stenosis and sclerosis with trace insufficiency DM2 -ISS -Diabetic diet History of rectal cancer s/p colostomy -normal output CAD s/p DC stent and V fib -Continue ASA and atorvastatin History of Raynauds -stable History of chronic cellulites of left low extremity with swelling -Will r/o DVT with US Diuretic use -Echo ordered will follow PVD -on ASA DVT prophylaxis - c/w Heparin SQ Disposition: Patient can be discharged from cardiology stand of point. GME ATTESTATION My preceptor for this patient encounter was physically present in the building during the encounter and was fully available. As needed, all aspects of the patient interview, examination, medical decision making process, and medical care plan development were reviewed and approved by the preceptor. Preceptor is aware and concurs with the plan as stated in the body of this note and will attest to such by his/her cosignature. VS,Fishbone, I+O VS, Fishbone, I+O Laboratory Tests 03/30/17 04:02 Red Blood Count 4.46, Mean Corpuscular Volume 95.3, Mean Corpuscular Hemoglobin 31.6, Mean Corpuscular Hemoglobin Concent 33.2, Red Cell Distribution Width 13.9 , Calcium Level 8.6 L Vital Signs Date Time Temp Pulse Resp B/P (MAP) Pulse Ox O2 Delivery O2 Flow Rate FiO2 03/30/17 07:55 Room Air 03/30/17 07:25 97.1 51 20 120/60 (80) 96 I&O- Last 24 Hours up to 6 AM 03/31/17 06:00 Intake Total 0 ml Output Total 175 ml Balance -175 ml DENISE CAMPA DO Mar 30, 2017 08:46 BRANDIE ENGEL MD Apr 18, 2017 20:28
--- NOTE | 2017-03-30 12:46 | REP ---
CT Head without contrast HISTORY: Infarction COMPARISON: 03/04/2016 Areas of decreased attenuation are present in the periventricular and subcortical white matter. This represents small-vessel ischemic disease. There is no intraparenchymal hemorrhage, acute infarct, mass or midline shift. The ventricular system and cortical sulci as well as subarachnoid space in the posterior fossa are dilated consistent with moderate volume loss. There is no extra cerebral collection. There is no fracture. The visualized sinuses are clear. IMPRESSION: 1. Small vessel ischemic disease. 2. Moderate volume loss. Signed by Dashawn Chairez MD 03/30/2017 12:38 P
[2017-03-30] MEDS ORDERED: LevoFLOXacin IV 500 MG in APPROPRIATE DILUENT 1 EA IV ONE (15:00)
--- NOTE | 2017-03-30 19:03 | ECGEPIP ---
Stationary ECG Study [facility] Test Date: 2017-03-30 Pat Name: DAVID LOUISE Department: Room: [place] [address] Gender: F [employer] Worker: YANET : 1930 Requested By: DENISE CAMPA Order Number: [id number] Reading MD: Trevor Perez Measurements Intervals [place] Rate: 79 P: 31 IA: 160 QRS: 27 QRSD: 93 T: 19 QT: 407 QTc: 469 Interpretive Statements SINUS RHYTHM POSSIBLE INFERIOR MYOCARDIAL INFARCTION, PROBABLY OLD Rate increased from tracing done 03-28-2017 Electronically Signed On 03-30-2017 19:03:39 EDT by Trevor Perez
[2017-03-30] MEDS: ATORVASTATIN 20 MG TAB PO SCH (20:53)
[2017-03-31] MEDS: ACETAMINOPHEN TAB 650MG DOSE (2X325MG) PO PRN ×2 (00:10→09:50)
[2017-03-31 04:00] VITALS: BP 136/70
[2017-03-31 05:19] LABS: MEAN CORPUSCULAR HEMOGLOBIN 30.8 pg (27.0-33.0); MEAN CORPUSCULAR HGB CONC 32.4 g/dl (32.0-36.5); MEAN CORPUSCULAR VOLUME 95.2 fl (80.0-96.0); PLATELET COUNT, AUTOMATED 222 10^3/uL (150-450); RED CELL DISTRIBUTION WIDTH 13.7 % (11.5-14.5)
[2017-03-31 05:36] LABS: ANION GAP 6 MEQ/L (8-16); BLOOD UREA NITROGEN 26 MG/DL (7-18); CALCIUM LEVEL 8.5 MG/DL (8.8-10.2); CARBON DIOXIDE LEVEL 27 MEQ/L (21-32); CHLORIDE LEVEL 108 MEQ/L (98-107); CREATININE FOR GFR 0.89 MG/DL (0.55-1.02); GLOMERULAR FILTRATION RATE > 60.0 (>32); GLUCOSE, FASTING 106 MG/DL (83-110); POTASSIUM SERUM 3.6 MEQ/L (3.5-5.1); SODIUM LEVEL 141 MEQ/L (136-145)
[2017-03-31] MEDS: HEPARIN SOD (PORCINE) 5000 UNITS/ML VIAL SC SCH (06:39)
--- NOTE | 2017-03-31 07:48 | IPN ---
DATE: 03/31/2017 Ms. Morse was kept in the hospital since yesterday. She had a brief episode of drop in blood pressure in the morning, it dropped into the 90s. She tells me that she was a little shaky, but otherwise asymptomatic. She has been feeling fine since. Her heart rate is better, mostly in the 60s to 90s. She did not have any significant bradycardias overnight. This morning, she is alert, oriented and appropriate. She does not seem to be in any distress. Blood pressure is 136/70. Heart rate is 60. She is afebrile. Saturation 91% on room air. Jugular venous pulse (JVP) is not elevated. Lungs are clear. Heart exam is regular rhythm. No gallop or rub is noted. Murmur is faint and unchanged. Abdomen is soft, nontender. There is no peripheral edema. Laboratory-cox, CBC is normal. Basic metabolic panel is normal as well. ASSESSMENT AND PLAN: Mrs. Morse is an 86-year-old female with history of hypertensive heart disease and history of coronary artery disease status post intervention in right coronary artery three years ago. She presented with dizziness and fatigue and was quite bradycardic. It was sinus bradycardia with heart rate mostly in the 40s and low 50s during the day. The metoprolol was discontinued. I think that the hypotension yesterday was principally related to the fact that she received several new antihypertensive medications that coincided to drop her blood pressure. I do agree that we can discharge her only on one antihypertensive medication like amlodipine. I will make sure that she is seen in followup by Dr. Alcaraz within the next 2-3 weeks. If her blood pressure should be elevated, then additional antihypertensive medications can be added. Otherwise, I do not have much else to contribute to her management.
[2017-03-31 07:55] VITALS: BP 138/68
[2017-03-31] MEDS: HumaLOG INSULIN (NovoLOG) PER UNIT SC SCH ×2 (07:56→13:03)
[2017-03-31] MEDS: MULTIVITAMINS/MINERALS THERAP 1 TAB PO SCH (07:56)
[2017-03-31] MEDS: ASPIRIN 81 MG ENTERIC TAB PO SCH (07:57)
[2017-03-31] MEDS: FERROUS SULFATE 325MG TAB PO SCH (07:57)
[2017-03-31] MEDS: PANTOPRAZOLE 40MG TAB (PROTONIX) PO SCH (07:57)
[2017-03-31] MEDS: GABAPENTIN 300 MG CAP PO SCH ×2 (07:57→13:06)
[2017-03-31] MEDS: VITAMIN D 1,000 INTERNATIONAL UNITS TABLET PO SCH (07:58)
[2017-03-31 08:02] VITALS: BP 138/68
[2017-03-31] MEDS: amLODIPine 5 MG TAB PO SCH (08:02)
[2017-03-31] MEDS: FUROSEMIDE 20 MG TAB PO SCH (08:14)
[2017-03-31] MEDS ORDERED: AMLO5TAB2 PO (08:51)
[2017-03-31] MEDS ORDERED: AMLO25TA PO (11:33)
[2017-03-31] MEDS ORDERED: LEVA1TAB PO (11:34)
[2017-03-31] MEDS ORDERED: LASI20TA PO (11:35)
[2017-03-31] MEDS ORDERED: LevoFLOXacin IV 250 MG in APPROPRIATE DILUENT 1 EA IV SCH (15:00)
--- NOTE | 2017-03-31 15:35 | DSES ---
DATE OF ADMISSION: 03/28/2017 DATE OF DISCHARGE: 03/31/2017 ADMISSION DIAGNOSES: 1. Symptomatic bradycardia. 2. Hypertensive urgency. 3. Diabetes. DISCHARGE DIAGNOSES: 1. Symptomatic bradycardia. 2. Hypotension, on blood pressure medication. 3. Non-sustained ventricular tachycardia. 4. Hypertensive urgency. 5. Aortic valve stenosis. 6. Type 2 diabetes. 7. History of rectal cancer status post colostomy. 8. Coronary artery disease status post myocardial infarction and stents with history of atrial fibrillation. 9. History of Raynaud's. 10. History of chronic cellulitis at the left lower extremity with swelling. 11. Diuretic use. 12. Peripheral vascular disease. PROJECT OFFICER: Dr. Rico from cardiology IMAGING: Patient had a CT of the head on 03/30/2017 that showed small-vessel ischemic disease, moderate volume change. Patient had a Doppler duplex of left lower extremity showing no deep vein thrombosis (DVT). Patient had a portal chest x-ray in the emergency room on 03/29/2017 showing cardiomegaly. Patient had an echocardiogram on 03/29/2017, read by Dr. Rico, showing normal left ventricular (LV) size and moderate LV hypertrophy with hyperdynamic LV systolic function, grade 1 diastolic dysfunction, aortic sclerosis resulting in trivial stenosis and trace insufficiency, mild mitral and trace tricuspid insufficiency. LABORATORIES PENDING: None. Patient had a urine culture that showed Klebsiella pneumoniae, which was sensitive to everything except penicillin. HISTORY OF PRESENT ILLNESS: An 86-year-old female with past medical history of peripheral vascular disease, rectal cancer status post colostomy, degenerative disc disease, diabetes, bilateral carotid endarterectomy, osteoporosis, gastroesophageal reflux disease (GERD), Raynaud's, myocardial infarction ([place]), status post four stents, presented to [facility] for increased fatigue. Patient stated intermittently she would feel dizzy and lightheaded, and most recent episode occurred 2 weeks ago, and it lasted for a few hours. Also, in the past 1 day patient started having fatigue and shakiness of the body. Her niece brought a blood pressure cuff, and patient was found to have a heart rate of 39. Niece started to walk the patient, and heart rate improved to 50s; however, symptoms persisted; therefore, they came to the emergency room for evaluation. In the emergency department (ED) EKG showed heart rate below 50. Human Resources Records Clerk was contacted in the emergency room and recommended to hold the beta norma. HOSPITAL COURSE: On day 1 patient's beta norma was continued to be held. Blood pressure, however, was uncontrolled, amlodipine an also hydralazine as needed were added, BP Improved. Bradycardia r esolved while patient was off beta norma. Patient was going to be discharged on March 30; however, her blood pressure dropped and was evaluated by Dr. Rico and hospitalist, who believed it was likely secondary to blood pressure medication. On 03/31/2017 patient's blood pressure was stable on a single amlodipine 5 mg. Therefore, she was ready to go home and followup with her claims manager. DISCHARGE CONDITION: Stable. Discharge to home. FOLLOWUP: Patient should followup with primary care provider within 1-[address] Alcaraz, her claims manager, within 1-2 weeks. ADDITIONAL INSTRUCTIONS: If patient develops increased dizziness, headache, palpitations, chest pain, increased shortness of breath, patient should contact primary care physician (PCP) or go to the emergency room. DISCHARGE MEDICATIONS: New medications include: - Norvasc 2.5 mg by mouth daily - Lasix 20 mg by mouth daily as needed - Levaquin 250 mcg by mouth daily for 2 more days Continued medications: - Tylenol 325 mg by mouth every 4 hours as needed - artificial tears two drops in each eye as needed for dry eyes - aspirin 81 mg one tablet by mouth daily - atorvastatin 40 mg one tablet by mouth at bedtime - vitamin D 1000 units one tablet by mouth daily - gabapentin 300 mg one tablet by mouth four times a day - iron 325 mg one tablet by mouth daily - metformin 500 mg one tablet by mouth every evening - multivitamin one tablet by mouth daily Stopped medications: - Lasix 20 mg by mouth every 2 days - metoprolol tartrate 25 mg by mouth twice a day Patient has been discussed with attending doctor, Dr. Banks. My preceptor for this patient encounter was Dr. Rangel Banks. The preceptor was physically present in the building during the encounter and was fully available as needed. All aspects of the patient interview, examination, medical decision making process, and medical care plan development were reviewed and approved by the preceptor. The preceptor is aware and concurs with the plan as stated in the body of this note and will attest to such by his/her co-signature. PONCHO
== END 2017-03-31 13:16 | disposition home health service (06) ==
LOC: M ED 15:02 → M ED INP 18:01 → M PCU 20:15
PROVIDERS: ADMIT Internal Medicine; ATTEND Internal Medicine
DX: R00.1 Bradycardia, unspecified (principal); I95.9 Hypotension, unspecified; E11.9 Type 2 diabetes mellitus without complications; I16.0 Hypertensive urgency; I35.0 Nonrheumatic aortic (valve) stenosis; Z85.038 Personal history of other malignant neoplasm of large intestine; I25.10 Atherosclerotic heart disease of native coronary artery without angina pectoris; I48.91 Unspecified atrial fibrillation; Z98.61 Coronary angioplasty status; I73.01 Raynaud's syndrome with gangrene; I73.9 Peripheral vascular disease, unspecified; Z79.899 Other long term (current) drug therapy; Z79.82 Long term (current) use of aspirin; M81.0 Age-related osteoporosis without current pathological fracture; K21.9 Gastro-esophageal reflux disease without esophagitis; Z87.891 Personal history of nicotine dependence
CPT/HCPCS: 36415; 70450; 71010; 80048; 80076; 81001; 82550; 82553; 83036; 83735; 84439; 84443; 84484; 85025; 85027; 87040; 87088; 87186; 93005; 93041; 93306; 93971; 94760; 96372; 96374; 97161; 99285; G0378; G8978; G8979; G8980; J1956

== ENCOUNTER 2017-12-18 10:26 | Observation (INO) | payer MEDICARE ==
[2017-12-18 11:29] LABS: AMORPHOUS SEDIMENT RFX MODERATE (NEGATIVE); KETONE, URINE AUTO RFX TRACE mg/dL (NEGATIVE); LEUKOCYTE ESTERASE UR AUTO RFX 2+ (NEGATIVE); NITRITE, URINE AUTO RFX NEGATIVE (NEGATIVE); RBC, URINE AUTO RFX TNTC /HPF (0-3); SPECIFIC GRAVITY UR AUTO RFX 1.016 (1.002-1.035); SQUAM EPITHELIAL CELL UR AURFX 4 /HPF (0-6); TRANSITIONAL EPITHELIAL AU RFX 1 /HPF; TRIPLE PHOSPHATE CRYSTALS RFX SMALL; WBC, URINE AUTO RFX 14 /HPF (0-3)
[2017-12-18] MEDS: NS 1,000 ML IV ×2 (11:30)
[2017-12-18 12:13] LABS: BASO % 0.6 % (0.0-1.0); EOS # 0.2 10^3/uL (0.0-0.50); EOS % 2.7 % (0.0-3.0); HEMATOCRIT 40.8 % (36.0-47.0); HEMOGLOBIN 13.6 g/dl (12.0-15.5); IMMATURE GRANULOCYTE % 0.3 % (0-3.0); LYMPH # 1.2 10^3/uL (1.5-4.5); MEAN CORPUSCULAR HEMOGLOBIN 31.3 pg (27.0-33.0); MEAN CORPUSCULAR HGB CONC 33.3 g/dl (32.0-36.5); MONO # 0.6 10^3/uL (0.0-0.8); MONO % 8.9 % (0.0-5.0); NEUTROPHILS # 4.6 10^3/uL (1.8-7.7); NEUTROPHILS % 69.5 % (36.0-66.0); PLATELET COUNT, AUTOMATED 259 10^3/uL (150-450); RED BLOOD COUNT 4.34 10^6/uL (4.00-5.40); RED CELL DISTRIBUTION WIDTH 13.5 % (11.5-14.5); WHITE BLOOD COUNT 6.7 10^3/uL (4.0-10.0)
[2017-12-18 13:18] LABS: LACTIC ACID SEPSIS PROTOCOL 1.4 MMOL/L (0.4-2.0)
[2017-12-18 13:51] LABS: ALBUMIN 3.6 GM/DL (3.2-5.2); ALBUMIN/GLOBULIN RATIO 1.03 (1.00-1.93); ALKALINE PHOSPHATASE 101 U/L (45-117); ALT/SGPT 25 U/L (12-78); ANION GAP 7 MEQ/L (8-16); AST/SGOT 26 U/L (7-37); BILIRUBIN,DIRECT 0.2 MG/DL (0.0-0.2); BILIRUBIN,TOTAL 0.6 MG/DL (0.2-1.0); BLOOD UREA NITROGEN 17 MG/DL (7-18); CALCIUM LEVEL 8.7 MG/DL (8.8-10.2); CARBON DIOXIDE LEVEL 28 MEQ/L (21-32); CHLORIDE LEVEL 107 MEQ/L (98-107); CREATININE FOR GFR 0.71 MG/DL (0.55-1.30); GLOMERULAR FILTRATION RATE > 60.0 (>32); GLUCOSE, FASTING 84 MG/DL (70-100); POTASSIUM SERUM 4.2 MEQ/L (3.5-5.1); SODIUM LEVEL 142 MEQ/L (136-145); TOTAL PROTEIN 7.1 GM/DL (6.4-8.2)
[2017-12-18] MEDS: GABAPENTIN 300 MG CAP PO ×4 (16:30→21:10)
[2017-12-18] MEDS: CIPROFLOXACIN 400 MG in APPROPRIATE DILUENT 1 EA IV (17:02)
[2017-12-18] MEDS ORDERED: BISACODYL 5 MG TAB PO ×2 (18:15)
[2017-12-18] MEDS ORDERED: GLUCAGON FOR INJ 1 MG VIAL (J1610) SC ×2 (18:45)
[2017-12-18] MEDS ORDERED: GLUCOSE 4 GM CHEW TABLET PO ×2 (18:45)
[2017-12-18] MEDS ORDERED: DEXTROSE 50% 50 ML SYRINGE IV ×2 (18:45)
[2017-12-18] MEDS: cefTRIAXone SOD 1 GM in D5W MINI-BAG PLUS 50 ML IV (21:09)
[2017-12-18] MEDS: SENOKOT S TAB PO ×2 (21:10)
[2017-12-18] MEDS: ASPIRIN 81 MG ENTERIC TAB PO ×2 (21:10)
[2017-12-18] MEDS: ATORVASTATIN 20 MG TAB PO ×2 (21:10)
[2017-12-19 06:20] LABS: BASO % 0.7 % (0.0-1.0); EOS # 0.2 10^3/uL (0.0-0.50); EOS % 4.3 % (0.0-3.0); HEMATOCRIT 37.9 % (36.0-47.0); HEMOGLOBIN 12.4 g/dl (12.0-15.5); IMMATURE GRANULOCYTE % 0.2 % (0-3.0); LYMPH # 1.1 10^3/uL (1.5-4.5); LYMPH % 19.1 % (24.0-44.0); MEAN CORPUSCULAR HEMOGLOBIN 31.2 pg (27.0-33.0); MEAN CORPUSCULAR HGB CONC 32.7 g/dl (32.0-36.5); MEAN CORPUSCULAR VOLUME 95.5 fl (80.0-96.0); MONO # 0.6 10^3/uL (0.0-0.8); MONO % 10.8 % (0.0-5.0); NEUTROPHILS # 3.6 10^3/uL (1.8-7.7); NEUTROPHILS % 64.9 % (36.0-66.0); PLATELET COUNT, AUTOMATED 237 10^3/uL (150-450); RED BLOOD COUNT 3.97 10^6/uL (4.00-5.40); RED CELL DISTRIBUTION WIDTH 13.7 % (11.5-14.5); WHITE BLOOD COUNT 5.6 10^3/uL (4.0-10.0)
[2017-12-19 06:47] LABS: ANION GAP 8 MEQ/L (8-16); BLOOD UREA NITROGEN 14 MG/DL (7-18); CALCIUM LEVEL 8.1 MG/DL (8.8-10.2); CARBON DIOXIDE LEVEL 29 MEQ/L (21-32); CHLORIDE LEVEL 107 MEQ/L (98-107); CREATININE FOR GFR 0.71 MG/DL (0.55-1.30); GLOMERULAR FILTRATION RATE > 60.0 (>32); GLUCOSE, FASTING 85 MG/DL (70-100); POTASSIUM SERUM 3.8 MEQ/L (3.5-5.1); SODIUM LEVEL 144 MEQ/L (136-145)
[2017-12-19] MEDS: HumaLOG INSULIN (NovoLOG) PER UNIT SC ×6 (07:30→16:44)
[2017-12-19] MEDS: METOPROLOL TART 25 MG TABLET PO ×2 (08:17)
[2017-12-19] MEDS: GABAPENTIN 300 MG CAP PO ×6 (08:17→20:19)
[2017-12-19] MEDS: SENOKOT S TAB PO ×6 (08:18→20:19)
[2017-12-19] MEDS ORDERED: PILL CRUSHER/CUTTER 1 EACH XX ×2 (09:00)
[2017-12-19] MEDS: ACETAMINOPHEN TAB 650MG DOSE (2X325MG) PO ×2 (09:39)
[2017-12-19 11:35] LABS: BEDSIDE GLUCOSE 89 MG/DL (83-110)
[2017-12-19] MEDS ORDERED: POLYVINYL ALCOHOL OPHTH SOLN 15 ML(LIQUITEARS) OU ×2 (16:00)
[2017-12-19] MEDS: VITAMIN D 1,000 INTERNATIONAL UNITS TABLET PO ×2 (16:16)
[2017-12-19] MEDS: MULTIVITAMINS/MINERALS THERAP 1 TAB PO ×2 (16:16)
[2017-12-19] MEDS: FERROUS SULFATE 325MG TAB PO ×2 (16:17)
[2017-12-19 16:35] LABS: BEDSIDE GLUCOSE 97 MG/DL (83-110)
[2017-12-19] MEDS: cefTRIAXone SOD 1 GM in D5W MINI-BAG PLUS 50 ML IV (19:26)
[2017-12-19 19:47] LABS: BEDSIDE GLUCOSE 172 MG/DL (83-110)
[2017-12-19] MEDS: ASPIRIN 81 MG ENTERIC TAB PO ×2 (20:19)
[2017-12-19] MEDS: ATORVASTATIN 20 MG TAB PO ×2 (20:19)
[2017-12-20 06:55] LABS: BASO % 0.7 % (0.0-1.0); EOS # 0.2 10^3/uL (0.0-0.50); EOS % 3.9 % (0.0-3.0); HEMATOCRIT 42.8 % (36.0-47.0); HEMOGLOBIN 13.9 g/dl (12.0-15.5); IMMATURE GRANULOCYTE % 0.2 % (0-3.0); LYMPH # 1.2 10^3/uL (1.5-4.5); LYMPH % 22.8 % (24.0-44.0); MEAN CORPUSCULAR HEMOGLOBIN 30.8 pg (27.0-33.0); MEAN CORPUSCULAR HGB CONC 32.5 g/dl (32.0-36.5); MEAN CORPUSCULAR VOLUME 94.7 fl (80.0-96.0); MONO # 0.6 10^3/uL (0.0-0.8); MONO % 10.4 % (0.0-5.0); NEUTROPHILS # 3.4 10^3/uL (1.8-7.7); PLATELET COUNT, AUTOMATED 249 10^3/uL (150-450); RED BLOOD COUNT 4.52 10^6/uL (4.00-5.40); RED CELL DISTRIBUTION WIDTH 13.6 % (11.5-14.5); WHITE BLOOD COUNT 5.4 10^3/uL (4.0-10.0)
[2017-12-20 07:16] LABS: ANION GAP 7 MEQ/L (8-16); BLOOD UREA NITROGEN 17 MG/DL (7-18); CALCIUM LEVEL 8.7 MG/DL (8.8-10.2); CARBON DIOXIDE LEVEL 28 MEQ/L (21-32); CHLORIDE LEVEL 105 MEQ/L (98-107); CREATININE FOR GFR 0.63 MG/DL (0.55-1.30); GLOMERULAR FILTRATION RATE > 60.0 (>32); GLUCOSE, FASTING 95 MG/DL (70-100); SODIUM LEVEL 140 MEQ/L (136-145)
[2017-12-20] MEDS: HumaLOG INSULIN (NovoLOG) PER UNIT SC ×2 (07:30)
[2017-12-20] MEDS: METOPROLOL TART 25 MG TABLET PO ×2 (08:06)
[2017-12-20] MEDS: VITAMIN D 1,000 INTERNATIONAL UNITS TABLET PO ×2 (08:07)
[2017-12-20] MEDS: FERROUS SULFATE 325MG TAB PO ×2 (08:07)
[2017-12-20] MEDS: GABAPENTIN 300 MG CAP PO ×2 (08:07)
[2017-12-20] MEDS: MULTIVITAMINS/MINERALS THERAP 1 TAB PO ×2 (08:07)
[2017-12-20] MEDS: SENOKOT S TAB PO ×2 (08:07)
[2017-12-20] MEDS: ACETAMINOPHEN TAB 650MG DOSE (2X325MG) PO ×2 (08:18)
== END 2017-12-20 11:50 | disposition home or self-care (01) ==
LOC: M ED 10:26 → M ED INP 18:11 → M MSPAV 20:06
DX: R30.0 Dysuria (principal); R31.9 Hematuria, unspecified; I65.23 Occlusion and stenosis of bilateral carotid arteries; I11.9 Hypertensive heart disease without heart failure; I25.10 Atherosclerotic heart disease of native coronary artery without angina pectoris; I25.2 Old myocardial infarction; I73.9 Peripheral vascular disease, unspecified; E78.5 Hyperlipidemia, unspecified; E11.21 Type 2 diabetes mellitus with diabetic nephropathy; K21.9 Gastro-esophageal reflux disease without esophagitis; N21.0 Calculus in bladder; Z79.82 Long term (current) use of aspirin; Z79.899 Other long term (current) drug therapy
CPT/HCPCS: J0696

== ENCOUNTER → 2018-02-07 | Outpatient (REF) | payer MEDICARE ==
[2018-02-07 20:17] LABS: VITAMIN B12 LEVEL 981 PG/ML (247-911)
== END ==
LOC: M LAB REF 17:41
DX: D64.9 Anemia, unspecified (principal); E11.40 Type 2 diabetes mellitus with diabetic neuropathy, unspecified
CPT/HCPCS: 82607